=== PATIENT | female | born 1970 | race Hispanic/Latino ===

== ENCOUNTER 2019-05-05 21:08 | Emergency (ER) | payer BC ==
[~2019-05-05] VITALS: Ht 160 cm; Wt 127.0 kg
[2019-05-05 22:35] LABS: BASOPHILS # (AUTO) 0.1 (0.0-0.1); BASOPHILS % 0.5 % (0.0-1.0); EOSINOPHILS # (AUTO) 0.3 (0.0-0.4); EOSINOPHILS % 2.3 % (0.0-6.0); HEMATOCRIT 41.3 % (34.2-44.1); HEMOGLOBIN 13.7 g/dL (12.0-16.0); LYMPHOCYTES % 36.6 % (18.0-39.1); MEAN CORPUSCULAR HEMOGLOBIN 31.8 pg (28-32); MEAN CORPUSCULAR HGB CONC 33.2 g/dL (31-35); MEAN CORPUSCULAR VOLUME 95.8 fL (81-99); MONOCYTES # (AUTO) 0.5 (0.2-0.8); MONOCYTES % 4.9 % (4.4-11.3); NEUTROPHILS # (AUTO) 6.1 (2.1-6.9); NEUTROPHILS % 55.4 % (38.7-80.0); PLATELET COUNT 385 x10e3/uL (140-360); RED BLOOD COUNT 4.31 x10e6/uL (3.6-5.1); RED CELL DISTRIBUTION WIDTH 14.1 % (11.7-14.4)
[2019-05-05 22:45] LABS: BILIRUBIN,URINE NEGATIVE (NEGATIVE); CLARITY,URINE CLEAR (CLEAR); COLOR,URINE YELLOW (YELLOW); KETONES,URINE 1+ (NEGATIVE); LEUKOCYTE ESTERASE ,URINE NEGATIVE (NEGATIVE); NITRITE,URINE NEGATIVE (NEGATIVE); PREGNANCY TEST, URINE NEGATIVE (NEGATIVE); PROTEIN,URINE DIPSTICK NEGATIVE (NEGATIVE); URINE UROBILINOGEN 0.2 mg/dL (0.2 - 1)
[2019-05-05 22:54] LABS: AMYLASE 26 U/L (25-125); LIPASE 12 U/L (8-78)
[2019-05-05 22:56] LABS: ALANINE AMINOTRANSFERASE 19 IU/L (0-55); ALBUMIN 3.6 g/dL (3.5-5.0); ALKALINE PHOSPHATASE 111 IU/L (40-150); ANION GAP 14.7 mmol/L (8-16); BLOOD UREA NITROGEN 12 mg/dL (7-26); BUN/CREATININE RATIO 17 (6-25); CALCIUM 9.8 mg/dL (8.4-10.2); CARBON DIOXIDE 24 mmol/L (22-29); CHLORIDE 101 mmol/L (98-107); CREATINE KINASE 63 IU/L (29-168); CREATININE, SERUM 0.72 mg/dL (0.57-1.11); EST GLOMERULAR FILTRATION RATE > 60 ML/MIN (60-); GLUCOSE 96 mg/dL (74-118); POTASSIUM 3.7 mmol/L (3.5-5.1); SODIUM 136 mmol/L (136-145)
[2019-05-05 23:01] LABS: BACTERIA,URINE FEW /HPF; EPITHELIAL CELLS,URINE FEW /LPF; RBC,URINE 0-5 /HPF (0-5); WBC,URINE (MAN) 0-5 /HPF (0-5)
[2019-05-06] MEDS ORDERED: PANTOPRAZOLE 40 MG 10ML VIAL IV STA (00:19)
[2019-05-06] MEDS ORDERED: MAGNESIUM/ALUMINUM/SIMETHICONE 30 ML UDC PO ONE (00:30)
[2019-05-06] MEDS ORDERED: BELLADONNA ALK/PHENOBARBITAL 5 ML UDC PO ONE (00:30)
[2019-05-06] MEDS ORDERED: LIDOCAINE VISC 2% SOLN 15 ML UDC PO ONE (00:30)
[2019-05-06 02:26] VITALS: BP 102/63
--- OUTSIDE RECORDS SUMMARY | 2019-05-13 11:34 | XMS REPORT ---
Author Author [facility] Address Unknown Phone Unavailable Care Team Providers Care High Value Associate Name Role Phone Wilver REID Unavailable Unavailable Problems This patient has no known problems. Allergies, Adverse Reactions, Alerts This patient has no known allergies or adverse reactions. Medications This patient has no known medications. Results Test Description Test Time Test Comments Text Results Atomic Results Result Comments CT ABDOMEN/PELVIS W [place] [address] Patient Name: MARIAM MANZANO MR #: [id number] : 1970 Age/Sex: 46/F Req #: [id number] Adm Physician: Ordered by: BOB REID MD Report #: [id number] Location: ER Room/Bed: Procedure: [id number] CT/CT ABDOMEN/PELVIS W Exam Date: 04/01/17 Exam Time: 1220 REPORT STATUS: Signed PROCEDURE: CT ABDOMEN AND PELVIS WITH CONTRAST TECHNIQUE: The abdomen and pelvis were scanned utilizing a multidetector helical scanner from the diaphragm to the lesser trochanter after the IV administration of 100 cc of Isovue 370 and the oral administration of Gastroview and water. Coronal and sagittal multiplanar reformations were obtained. COMPARISON: None. INDICATIONS: RIGHT LOWER QUADRANT PAIN, VOMITING FINDINGS: LOWER THORAX: Normal. HEPATOBILIARY: No focal hepatic lesions. No biliary ductal dilatation. Cholecystectomy. SPLEEN: No splenomegaly. PANCREAS: No focal masses or ductal dilatation. ADRENALS: No adrenal nodules. KIDNEYS/URETERS: No hydronephrosis, stones, or solid mass lesions. PELVIC ORGANS/BLADDER: Normal uterus and ovaries. Normal urinary bladder. PERITONEUM / RETROPERITONEUM: No free air or fluid. LYMPH NODES: No lymphadenopathy. VESSELS: Unremarkable. GI TRACT: No distention or wall thickening. Normal appendix. Moderate amount of retained feces limits intraluminal evaluation of the colon. BONES AND SOFT TISSUES: Unremarkable. IMPRESSION: No acute abnormality of the abdomen and pelvis. Dictated by: Clarence Holder M.D. on 04/01/2017 at 13:01 Electronically approved by: Clarence Holder M.D. on 04/01/2017 at 13:01 Dictated By: CLARENCE HOLDER MD [id number] Transcribed By: EVARISTO on 04/01/17 1301 COPY TO: BOB REID MD
== END 2019-05-06 02:34 | disposition home or self-care (01) ==
LOC: ER 21:08
DX: R10.13 Epigastric pain (principal); K29.00 Acute gastritis without bleeding; F41.9 Anxiety disorder, unspecified; F32.9 Major depressive disorder, single episode, unspecified
CPT/HCPCS: 36415; 80053; 81001; 81025; 82150; 82550; 82553; 83690; 84484; 85025; 93005; 99283; C9113

== ENCOUNTER 2021-05-19 12:15 | Emergency (ER) | payer BC ==
[~2021-05-19] VITALS: Ht 160 cm; Wt 133.8 kg
[~2021-05-19 12:15] MED LIST: PANTOPRAZOLE SO40 MG PO; SINGULAIR10 MG PO
[2021-05-19] MEDS ORDERED: CYCLOBENZAPRINE HCL 10 MG TAB PO ONE (12:45)
[2021-05-19] MEDS ORDERED: KETOROLAC TROMETHAMINE 30 MG/ML VIAL IM ONE (12:45)
[2021-05-19 13:01] LABS: CLARITY,URINE CLEAR (CLEAR); COLOR,URINE YELLOW (YELLOW); KETONES,URINE NEGATIVE (NEGATIVE); LEUKOCYTE ESTERASE ,URINE NEGATIVE (NEGATIVE); NITRITE,URINE NEGATIVE (NEGATIVE); PROTEIN,URINE DIPSTICK NEGATIVE (NEGATIVE); URINE UROBILINOGEN 0.2 mg/dL (0.2 - 1)
[2021-05-19 13:05] LABS: BACTERIA,URINE MODERATE /HPF; EPITHELIAL CELLS,URINE FEW /LPF; RBC,URINE 0-5 /HPF (0-5); WBC,URINE (MAN) 0-5 /HPF (0-5)
[2021-05-19] MEDS ORDERED: CYCLOBENZAPRINE10 MG PO (14:19)
[2021-05-19] MEDS ORDERED: LIDOCAINE1 EAC1 TD (14:19)
[2021-05-19] MEDS ORDERED: NAPROXEN250 MG PO (14:19)
[2021-05-19] MEDS ORDERED: CEPHALEXIN500 MG PO (14:19)
[2021-05-19 14:40] VITALS: BP 129/78
== END 2021-05-19 14:30 | disposition home or self-care (01) ==
LOC: ER 13:00
DX: M48.061 Spinal stenosis, lumbar region without neurogenic claudication (principal); M25.552 Pain in left hip; N39.0 Urinary tract infection, site not specified; F41.9 Anxiety disorder, unspecified; F32.A Depression, unspecified
CPT/HCPCS: 72100; 74176; 81001; 99283; J1885

== ENCOUNTER 2021-05-21 14:18 | Emergency (ER) | payer BC ==
[~2021-05-21] VITALS: Ht 157.5 cm; Wt 133.8 kg
[~2021-05-21 14:18] MED LIST changes: +CEPHALEXIN500 MG PO; +CYCLOBENZAPRINE10 MG PO; +LIDOCAINE1 EAC1 TD; +NAPROXEN250 MG PO
[2021-05-21] MEDS ORDERED: KETOROLAC TROMETHAMINE 30 MG/ML VIAL IV STA (14:34)
[2021-05-21] MEDS ORDERED: DIAZEPAM INJ 5 MG/ML 2 ML IV ONE (14:45)
[2021-05-21] MEDS ORDERED: DEXAMETHASONE SOD PHOS 10 MG/1 ML VIAL IV ONE (14:45)
[2021-05-21 15:18] VITALS: BP 158/85
== END 2021-05-21 15:20 | disposition home or self-care (01) ==
LOC: ER 14:22
DX: M54.50 Low back pain, unspecified (principal); F41.9 Anxiety disorder, unspecified; F32.A Depression, unspecified; Z88.2 Allergy status to sulfonamides; Z91.013 Allergy to seafood; Z87.440 Personal history of urinary (tract) infections
CPT/HCPCS: 99283; J1100; J1885; J3360